=== PATIENT | male | born 1975 | race Caucasian/White ===

== ENCOUNTER 2025-04-30 01:03 | Emergency (ER) | payer SELFPAY ==
[~2025-04-30] VITALS: Ht 170.2 cm; Wt 84.4 kg
[2025-04-30 02:02] VITALS: O2SAT 98
[2025-04-30 02:46] LABS: CLARITY URINE CLEAR (CLEAR); COLOR URINE YELLOW (YELLOW); GLUCOSE URINE NEGATIVE (NEGATIVE); KETONES URINE TRACE (NEGATIVE); LEUKOCYTE ESTERASE URINE NEGATIVE (NEGATIVE); NITRITE URINE NEGATIVE (NEGATIVE); OCCULT BLOOD URINE NEGATIVE (NEGATIVE); PH URINE 6.0 (4.5-8.0); PROTEIN URINE NEGATIVE (NEGATIVE); SPECIFIC GRAVITY URINE 1.022 (1.005-1.030); UROBILINOGEN URINE 0.2 E.U./dL (0.2-1.0)
[2025-04-30] MEDS: MORPHINE SULFATE 4 MG/ML INJ (FOR IV/IM USE) IM ONE (03:30)
[2025-04-30 03:51] LABS: BASOPHILS % 0.3 % (0.0-2.0); EOSINOPHILS % 0.4 % (0.0-5.0); HEMATOCRIT. 40.9 % (42.0-52.0); HEMOGLOBIN. 14.1 g/dL (14.0-18.0); LYMPHOCYTES % 18.3 % (20.0-50.0); MEAN PLATELET VOLUME 7.4 fl (7.4-10.4); MONOCYTES % 9.9 % (2.0-8.0); NEUTROPHILS % 71.1 % (40.0-76.0); PLATELET 279 x1000/uL (130-400); RED BLOOD CELL COUNT 4.72 mill/uL (4.7-6.1); RED CELL DISTRIBUTION WIDTH 13.2 % (11.6-14.6)
[2025-04-30 04:03] LABS: CREATININE 1.2 mg/dL (0.6-1.3); UREA NITROGEN BLOOD 11 mg/dL (9-23)
[2025-04-30] MEDS ORDERED: HYDR-4009 MT (05:56)
[2025-04-30 06:06] VITALS: BP 127/80; PULSE 72; RESP 18; TEMP 36.6; O2SAT 99
[2025-04-30] MEDS: KETOROLAC 30MG/ML VIAL IM ONE (06:13)
== END 2025-04-30 06:18 | disposition home or self-care (01) ==
LOC: ER 01:03
DX: I86.1 Scrotal varices (principal); L72.9 Follicular cyst of the skin and subcutaneous tissue, unspecified; N43.3 Hydrocele, unspecified; Z79.899 Other long term (current) drug therapy
CPT/HCPCS: 99285; 93976; 80048; 81003; 85025; 36415; 76870; 93005; 96372; J1885; J2270